=== PATIENT | female | born 1960 | race African-American/Black ===

== ENCOUNTER → 2016-03-08 | Outpatient (CLI) | payer BC ==
[2016-03-08 14:09] LABS: HEMATOCRIT 37.4 % (36.0-47.0); HEMOGLOBIN 11.9 g/dL (12.0-15.5); HGB HCT DIFFERENCE -1.7; MEAN CORPUSCULAR HEMOGLOBIN 27.6 pg (27.0-33.4); MEAN CORPUSCULAR HGB CONC 31.9 g/dL (32.0-36.0); MEAN CORPUSCULAR VOLUME 86 fl (80-97); RED BLOOD COUNT 4.33 10^6/uL (3.72-5.28); RED CELL DISTRIBUTION WIDTH 14.6 % (11.5-14.0); WHITE BLOOD COUNT 5.5 10^3/uL (4.0-10.5)
[2016-03-08 14:25] LABS: ALANINE AMINOTRANSFERASE 25 U/L (9-52); ALBUMIN 4.4 g/dL (3.5-5.0); ALKALINE PHOSPHATASE 79 U/L (38-126); ANION GAP 12 (5-19); BILIRUBIN,TOTAL 0.6 mg/dL (0.2-1.3); BLOOD UREA NITROGEN 14 mg/dL (7-20); CALCIUM 9.9 mg/dL (8.4-10.2); CARBON DIOXIDE 33 mmol/L (22-30); CHLORIDE 99 mmol/L (98-107); CREATININE RESULT 0.72 mg/dL (0.52-1.25); GLUCOSE 98 mg/dL (75-110); POTASSIUM 4.1 mmol/L (3.6-5.0); SODIUM 143.9 mmol/L (137-145); TOTAL PROTEIN 7.5 g/dL (6.3-8.2)
[2016-03-08 14:26] LABS: ASPARTATE AMINO TRANSFERASE 11 U/L (14-36)
[2016-03-10 15:15] LABS: Direct HDL 50 mg/dL (>40); TRIGLYCERIDES 140 mg/dL (<150)
[2016-03-10 15:33] LABS: DIRECT LDL 119 mg/dL (<100)
== END ==
LOC: OD 13:28
PROVIDERS: ATTEND Obstetrics & Gynecology
DX: J45.909 Unspecified asthma, uncomplicated (principal); I10 Essential (primary) hypertension; Z51.81 Encounter for therapeutic drug level monitoring
CPT/HCPCS: 36415; 80053; 80061; 83036; 85027

== ENCOUNTER 2016-05-30 10:10 | Emergency (ER) | payer BC ==
[2016-05-30] MEDS ORDERED: LIDOCAINE 5% (700 MG) TRANSDERMAL ADH..PATCH TP ONE (13:04)
--- NOTE | 2016-05-30 13:04 | ER Document Report ---
HPI - HPI Patient complains to provider of: right hip and back pain Onset: This morning Onset/Duration: Sudden, Worse Quality of pain: Achy Pain Level: 5 Context: Patient states she has a history of chronic low back pain for which she sees her primary doctor and takes Percocet for this. Patient states that she was walking to her vehicle went to sit down, and fell landing on the inner door well of the vehicle. Patient states that since falling she has had right hip, thigh and lower back pain. Patient states she has chronic low back pain and this is in the typical location of her chronic back pain. Patient denies any urinary retention or incontinence. Patient additionally complains of a rash that she has had her right forearm for the past month. Patient states she helps a friend take care of chores at her house in the friend has pets in the home. Patient thinks her rash is due to some contact with animal dander. Associated Symptoms: Other - Low back, right hip and thigh pain Exacerbated by: Movement, Walking Relieved by: Denies Similar symptoms previously: Yes Recently seen / treated by doctor: No - ROS ROS below otherwise negative: Yes Systems Reviewed and Negative: Yes All other systems reviewed and negative - GASTROINTESTINAL Gastrointestinal: DENIES: Nausea - URINARY Urinary: DENIES: Dysuria Notes: No urinary retention or incontinence - REPRODUCTIVE Reproductive: DENIES: : - MUSCULOSKELETAL Musculoskeletal: REPORTS: Extremity pain, Back Pain. DENIES: Neck Pain, Swelling - DERM Skin Color: Normal Skin Problems: None Past Medical History - General Information source: Patient - Social History Smoking Status: Never Smoker Chew tobacco use (# tins/day): No Drug Abuse: None Occupation: none Family History: Reviewed & Not Pertinent Patient has suicidal ideation: No Patient has homicidal ideation: No - Past Medical History Cardiac Medical History: Reports: Hx Hypertension Pulmonary Medical History: Reports: Hx Asthma Renal/ Medical History: Denies: Hx Peritoneal Dialysis Musculoskeltal Medical History: Reports Hx Arthritis, Reports Other - Chronic back pain Surgical Hx: Negative - Immunizations Hx Diphtheria, Pertussis, Tetanus Vaccination: Yes Vertical Provider Document - CONSTITUTIONAL Agree With Documented VS: Yes Exam Limitations: No Limitations General Appearance: WD/WN, No Apparent Distress - INFECTION CONTROL TRAVEL OUTSIDE OF THE [place] IN LAST 30 DAYS: No - HEENT HEENT: Atraumatic, Normal ENT Exam, Normocephalic - NECK Neck: Normal Inspection, Supple - RESPIRATORY Respiratory: Breath Sounds Normal, No Respiratory Distress, Chest Non-Tender O2 Sat by Pulse Oximetry: 95 - CARDIOVASCULAR Cardiovascular: Regular Rate, Regular Rhythm, No Murmur - BACK Back: Abnormal Inspection - Patient with lower lumbar paraspinal tenderness, right SI joint tenderness. negative: CVA Tenderness-Right, CVA Tenderness-Left Notes: No midline step-off or deformity - MUSCULOSKELETAL/EXTREMETIES Musculoskeletal/Extremeties: MAEW, Tender - Patient with tenderness with palpation of right hip as well as proximal third of right femur. No ecchymosis , no deformity. Normal gait, patient ambulatory in room with cane without any guarding - NEURO Level of Consciousness: Awake, Alert, Appropriate Motor/Sensory: No Motor Deficit - DERM Integumentary: Warm, Dry, Rash - Erythematous macular papular rash with scaling to middle third of right forearm Course - Vital Signs Vital signs: Temp Pulse Resp BP Pulse Ox 98.1 F 89 18 147/90 H 95 05/30/16 10:16 05/30/16 10:16 05/30/16 10:16 05/30/16 10:16 05/30/16 10:16 - Diagnostic Test Radiology reviewed: Image reviewed, Reports reviewed Discharge - Discharge Clinical Impression: Arthritis, Skin rash, Hx of essential hypertension Sprain of right hip Qualifiers: Encounter type: initial encounter Qualified Code(s): S73.101A - Unspecified sprain of right hip, initial encounter Chronic low back pain Qualifiers: Back pain laterality: bilateral Sciatica presence: without sciatica Qualified Code(s): M54.5 - Low back pain Condition: Stable Disposition: HOME, SELF-CARE Instructions: Ice Packs ([facility]), Warm Packs ([facility]), Low Back Pain ([facility]), Muscle Strain ([facility]), Sprain ([facility]), Contact Dermatitis ([facility]), Topical Steroid Cream or Ointment ([facility]) Additional Instructions: Return immediately for any new or worsening symptoms Followup with your primary care provider, call tomorrow to make a followup appointment Follow up with an fire protection specialist for any continued hip pain or problems Get a refill of your pain medication from your primary doctor Take your blood pressure medication at home as prescribed You may use a topical icle-wqx-gygkeva lidocaine patch Prescriptions: Triamcinolone Acetonide [Aristocort 0.1% Cream] 1 applic TP TID #60 gm Referrals: WILBER RAMIREZ MD [Primary Care Provider] - 05/30/16 [facility] [Provider Group] - Follow up in 3-5 days
[2016-05-30 13:21] VITALS: BP 162/108
== END 2016-05-30 13:21 | disposition home or self-care (01) ==
LOC: ER 10:10
DX: S73.101A Unspecified sprain of right hip, initial encounter (principal); W18.39XA Other fall on same level, initial encounter; Y93.89 Activity, other specified; Y92.810 Car as the place of occurrence of the external cause; M19.90 Unspecified osteoarthritis, unspecified site; M25.551 Pain in right hip; M79.651 Pain in right thigh; R21 Rash and other nonspecific skin eruption; M54.5 Low back pain; G89.29 Other chronic pain; Z79.891 Long term (current) use of opiate analgesic; I10 Essential (primary) hypertension; J45.909 Unspecified asthma, uncomplicated
CPT/HCPCS: 72110; 99283

== ENCOUNTER → 2018-05-23 | Day surgery (SDC) | payer BC, MEDICARE ==
[2018-05-22 11:49] LABS: HEMATOCRIT 35.7 % (36.0-47.0); HEMOGLOBIN 11.9 g/dL (12.0-15.5); MEAN CORPUSCULAR HEMOGLOBIN 27.7 pg (27.0-33.4); MEAN CORPUSCULAR HGB CONC 33.2 g/dL (32.0-36.0); MEAN CORPUSCULAR VOLUME 84 fl (80-97); PLATELET COUNT 314 10^3/uL (150-450); RED BLOOD COUNT 4.28 10^6/uL (3.72-5.28); RED CELL DISTRIBUTION WIDTH 14.8 % (11.5-14.0); WHITE BLOOD COUNT 6.2 10^3/uL (4.0-10.5)
[2018-05-22 11:52] LABS: APPEARANCE,URINE SLIGHTLY-CLOUDY; BILIRUBIN,URINE NEGATIVE (NEGATIVE); COLOR,URINE YELLOW; GLUCOSE, URINE NEGATIVE (NEGATIVE); KETONES,URINE NEGATIVE (NEGATIVE); LEUKOCYTE ESTERASE,URINE TRACE (NEGATIVE); NITRITE,URINE NEGATIVE (NEGATIVE); PROTEIN,URINE NEGATIVE (NEGATIVE); URINE SPECIFIC GRAVITY 1.025; UROBILINOGEN,URINE NEGATIVE mg/dL (<2.0)
[2018-05-22 12:16] LABS: ALANINE AMINOTRANSFERASE 24 U/L (9-52); ALBUMIN 4.2 g/dL (3.5-5.0); ALKALINE PHOSPHATASE 84 U/L (38-126); ANION GAP 8 (5-19); ASPARTATE AMINO TRANSFERASE 16 U/L (14-36); BILIRUBIN,DIRECT 0.2 mg/dL (0.0-0.4); BILIRUBIN,TOTAL 0.3 mg/dL (0.2-1.3); BLOOD UREA NITROGEN 15 mg/dL (7-20); CARBON DIOXIDE 28 mmol/L (22-30); CHLORIDE 103 mmol/L (98-107); GLUCOSE 91 mg/dL (75-110); POTASSIUM 3.8 mmol/L (3.6-5.0); SODIUM 139.3 mmol/L (137-145)
[~2018-05-23] MED LIST: ALBUTEROL SULFATE 0.083% NEB 2.5 MG/3 ML AMPUL NEB ONE; ALBUTEROL SULFATE 0.083% NEB 2.5 MG/3 ML AMPUL NEB PRN; CEFAZOLIN 1 GM/D5W RTU 0 GM/0 ML RTUPB IV ONE; CEFAZOLIN 1 GM/D5W RTU 1 GM/50 ML RTUPB IV PRN; FAMOTIDINE INJ/PF 20 MG/2 ML SDV IV ONE; FAMOTIDINE INJ/PF 20 MG/2 ML SDV IV PRN; LACTATED RINGERS 1000 ML IV PRN; LIDOCAINE 0.5% INJ-PF (5 MG/ML) 50 ML SDV SUBCUT PRN; METOCLOPRAMIDE HCL INJ/PF 10 MG/2 ML SDV ONE
[2018-05-23 09:36] VITALS: BP 151/93
--- NOTE | 2018-05-23 10:24 | EKG REPORT ---
SEVERITY:- ABNORMAL ECG - SINUS RHYTHM : Confirmed by: Leticia Hitchcock 23-May-2018 10:22:43
--- NOTE | 2018-05-23 10:54 | EKG REPORT ---
SEVERITY:- BORDERLINE ECG - SINUS RHYTHM BORDERLINE T WAVE ABNORMALITIES : Confirmed by: Leticia Hitchcock 23-May-2018 10:53:51
== END ==
LOC: OROUT 08:24
PROVIDERS: ATTEND Obstetrics & Gynecology
DX: N93.9 Abnormal uterine and vaginal bleeding, unspecified (principal); Z79.01 Long term (current) use of anticoagulants; R94.31 Abnormal electrocardiogram [ECG] [EKG]
CPT/HCPCS: 93005 ×2; 86900; 86901; 36415 ×2; 86850; 84132; 85027; 81025; 80053; 81001; 93010 ×2; 94640; A9270; J0690; J2765; S0028

== ENCOUNTER 2018-12-05 10:03 | Inpatient (IN) | payer MEDICARE ==
--- NOTE | 2018-12-04 12:26 | RADIOLOGY REPORT (SQ) ---
EXAM DESCRIPTION: CHEST PA/LATERAL COMPLETED DATE/TIME: 12/04/2018 12:14 pm REASON FOR STUDY: PRE-OP COMPARISON: 11/13/2013 EXAM PARAMETERS: NUMBER OF VIEWS: two views TECHNIQUE: Digital Frontal and Lateral radiographic views of the chest acquired. RADIATION DOSE: NA LIMITATIONS: none FINDINGS: LUNGS AND PLEURA: No opacities, masses or pneumothorax. No pleural effusion. MEDIASTINUM AND HILAR STRUCTURES: No masses or contour abnormalities. HEART AND VASCULAR STRUCTURES: Heart normal size. No evidence for failure. BONES: No acute findings. HARDWARE: None in the chest. OTHER: No other significant finding. IMPRESSION: NO SIGNIFICANT RADIOGRAPHIC FINDING IN THE CHEST. TECHNICAL DOCUMENTATION: JOB ID: [id number] [employer]- All Rights Reserved Reading location - IP/workstation name: [email or web address]
[2018-12-04 12:29] LABS: APPEARANCE,URINE SLIGHTLY-CLOUDY; BILIRUBIN,URINE NEGATIVE (NEGATIVE); COLOR,URINE YELLOW; GLUCOSE, URINE NEGATIVE (NEGATIVE); KETONES,URINE NEGATIVE (NEGATIVE); LEUKOCYTE ESTERASE,URINE MODERATE (NEGATIVE); NITRITE,URINE NEGATIVE (NEGATIVE); PROTEIN,URINE NEGATIVE (NEGATIVE); URINE SPECIFIC GRAVITY 1.021; UROBILINOGEN,URINE NEGATIVE mg/dL (<2.0)
[2018-12-04 12:31] LABS: HEMATOCRIT 30.5 % (36.0-47.0); MEAN CORPUSCULAR HEMOGLOBIN 27.7 pg (27.0-33.4); MEAN CORPUSCULAR HGB CONC 32.8 g/dL (32.0-36.0); MEAN CORPUSCULAR VOLUME 84 fl (80-97); PLATELET COUNT 436 10^3/uL (150-450); RED BLOOD COUNT 3.61 10^6/uL (3.72-5.28); RED CELL DISTRIBUTION WIDTH 15.3 % (11.5-14.0); WHITE BLOOD COUNT 7.5 10^3/uL (4.0-10.5)
[2018-12-04 13:05] LABS: ALBUMIN 4.2 g/dL (3.5-5.0); ALKALINE PHOSPHATASE 71 U/L (38-126); ANION GAP 14 (5-19); ASPARTATE AMINO TRANSFERASE 13 U/L (14-36); BILIRUBIN,DIRECT 0.2 mg/dL (0.0-0.4); BILIRUBIN,TOTAL 0.3 mg/dL (0.2-1.3); BLOOD UREA NITROGEN 16 mg/dL (7-20); CALCIUM 10.1 mg/dL (8.4-10.2); CARBON DIOXIDE 26 mmol/L (22-30); CHLORIDE 104 mmol/L (98-107); GLUCOSE 89 mg/dL (75-110); TOTAL PROTEIN 8.1 g/dL (6.3-8.2)
--- NOTE | 2018-12-04 18:59 | EKG REPORT ---
SEVERITY:- BORDERLINE ECG - SINUS RHYTHM BORDERLINE T WAVE ABNORMALITIES : Confirmed by: Tessa Diego MD 04-Dec-2018 18:58:31
[~2018-12-05 10:03] MED LIST changes: -ALBUTEROL SULFATE 0.083% NEB 2.5 MG/3 ML AMPUL NEB ONE; -ALBUTEROL SULFATE 0.083% NEB 2.5 MG/3 ML AMPUL NEB PRN; -CEFAZOLIN 1 GM/D5W RTU 0 GM/0 ML RTUPB IV ONE; -CEFAZOLIN 1 GM/D5W RTU 1 GM/50 ML RTUPB IV PRN; +CEFAZOLIN SODIUM 2 GM in DEXTROSE 5%-WATER 100 ML IV PRN; -FAMOTIDINE INJ/PF 20 MG/2 ML SDV IV ONE; -FAMOTIDINE INJ/PF 20 MG/2 ML SDV IV PRN; -METOCLOPRAMIDE HCL INJ/PF 10 MG/2 ML SDV ONE
[2018-12-05] MEDS ORDERED: DEXAMETHASONE SOD PHOSPHATE INJ 4 MG/1 ML VIAL ONE (10:34)
[2018-12-05] MEDS ORDERED: ROCURONIUM BROMIDE INJ 50 MG/5 ML VIAL IV ONE (10:34)
[2018-12-05] MEDS ORDERED: METOCLOPRAMIDE HCL INJ/PF 10 MG/2 ML SDV ONE (10:34)
[2018-12-05] MEDS ORDERED: PHENYLEPHRINE HCL INJ/PF 10 MG/1 ML SDV ONE (10:34)
[2018-12-05] MEDS ORDERED: SUCCINYLCHOLINE CHLORIDE INJ 200 MG/10 ML VIAL ONE (10:34)
[2018-12-05] MEDS ORDERED: GLYCOPYRROLATE INJ 0.4 MG/2 ML VIAL ONE (10:34)
[2018-12-05] MEDS ORDERED: ONDANSETRON HCL INJ/PF 4 MG/2 ML SDV ONE (10:34)
[2018-12-05] MEDS ORDERED: FENTANYL CITRATE INJ/PF 100 MCG/2 ML AMPUL IV PRN ×3 (11:46)
[2018-12-05] MEDS ORDERED: MEPERIDINE HCL/PF INJ 25 MG/1 ML DISP.SYRIN IV PRN (11:46)
[2018-12-05] MEDS ORDERED: DIPHENHYDRAMINE HCL 50 MG/ML VIAL IV PRN (11:46)
[2018-12-05] MEDS ORDERED: MIDAZOLAM 2 MG/2 ML INJ ONE (12:03)
[2018-12-05] MEDS ORDERED: FENTANYL CITRATE INJ/PF 100 MCG/2 ML AMPUL ONE (12:03)
[2018-12-05] MEDS ORDERED: HYDROMORPHONE HCL INJ/PF 2 MG/ML AMPULE ONE (12:03)
[2018-12-05] MEDS ORDERED: PROPOFOL INJ 200 MG/20 ML VIAL IV ONE (12:04)
[2018-12-05] MEDS ORDERED: FAMOTIDINE INJ/PF 20 MG/2 ML SDV IV ONE (13:39)
[2018-12-05] MEDS ORDERED: VASOPRESSIN INJ 20 UNIT/1 ML VIAL IV ONE (14:51)
[2018-12-05] MEDS ORDERED: PROMETHAZINE HCL INJ 25 MG/1 ML VIAL IV PRN (16:31)
[2018-12-05] MEDS ORDERED: HYDROMORPHONE HCL INJ/PF 2 MG/ML AMPULE IV PRN (16:31)
[2018-12-05] MEDS ORDERED: OXYCODONE-ACETAMINOPHEN 5-325 MG TABLET PO PRN (16:31)
[2018-12-05] MEDS ORDERED: RINGERS SOLUTION,LACTATED 1,000 ML IV PRN (16:31)
[2018-12-05] MEDS ORDERED: ACETAMINOPHEN 1,000 MG/100 ML RTUPB IV PRN (16:31)
[2018-12-05] MEDS ORDERED: SIMETHICONE 80 MG TAB.CHEW PO PRN (16:31)
[2018-12-05] MEDS ORDERED: ACETAMINOPHEN 325 MG TABLET PO PRN (16:31)
--- NOTE | 2018-12-05 16:47 | Operative Report ---
Operative Report DATE OF SURGERY: 12/05/18 PREOPERATIVE DIAGNOSIS: Postmenopausal abnormal uterine bleeding, leiomyoma of uterus multiple, pelvic pain, anemia of chronic blood loss POSTOPERATIVE DIAGNOSIS: Same OPERATION: Total abdominal hysterectomy with bilateral salpingo-oophorectomy SURGEON: MARJORIE MARTINEZ 1ST LIME BURNER: ARMAND PATEL ANESTHESIA: GA TISSUE REMOVED OR ALTERED: Cervix bilateral fallopian tube and ovaries COMPLICATIONS: None ESTIMATED BLOOD LOSS: 650 cc INTRAOPERATIVE FINDINGS: Large multiple lobe fibroid uterus just fibroid was approximately 10-1/2 cm was several within the fundus of the uterus was subserosal and submucosal ovaries were postmenopausal in appearance and tubes appeared normal, appendix was also noted during the case and was found to be normal in appearance PROCEDURE: Patient was taken to the operating room prepared and draped in normal sterile fashion in a supine position. A large Pfannenstiel skin incision was made with scalpel and carried through to the underlying layer fascia with the same scalpel. She was excised in the midline and extended laterally with Long's and Bovie as needed. She was then dissected from the rectus muscle sharply with the May[place]. This muscle was then divided in the midline. [place] cavity was entered bluntly and finally sharply with Metzenbaums. Peritoneum and rectus muscles were divided. This retractor was placed without difficulty. Was further packed away with moist laparotomy sponges. Findings were noted immediately with the uterus. Due to lack of visualization due to the size of the uterus several myomectomies were performed. The areas were injected with approximately a combined amount of 20 cc of vasopressin next with normal saline. The fibroids were then transected and removed using the Bovie and blunt dissection as necessary. The uterine body was more easily identifiable. The right adnexa presented itself more readily so the right adnexa is where the hysterectomy began. The right IP ligament was located and transected using the LigaSure. The once the ovary and fallopian tube were freed the right uterine arteries were skeletonized and transected and ligated with the LigaSure. Carried through to the the internal cervical os. She was then turned to the left adnexa the left adnexa was tucked far behind the uterus and was adhered a bit to the posterior abdominal wall. Therefore we began with transection of the round ligament and right utero-ovarian ligament . I then continued with the transection of the right uterine arteries again down to the level of the internal cervical loss. We were at a point where visualization was again becom ing more difficult, the upper two thirds of the uterus was amputated using Satinder's. the bladder was addressed in that the bladder flap was created using Metzenbaums and sharp and blunt dissection as needed. Once the bladder was further away we began we continued with transection of the uterine arteries bilaterally using the LigaSure down to until we could palpate the cervix through the mucosa. The vaginal angles were clamped with 2 Deepika clamps and the remainder of the cervix was amputated using Satinder's. Vaginal garner were then tagged with 2 Musa clamps. Vaginal garner were closed and reapproximated with several [id number]-[id number] 0 Vicryl pop offs. Until closure was felt to be assured. Stasis was maintained. We then went in search of the right over ovary and fallopian tube that had to be foregone earlier. Lupien tube was identified and grasped with a [place]. Following closely under the fallopian tube the this was transected and released from the IP ligament including the ovary and the LigaSure. Hemostasis was maintained. We then copiously irrigated and found the peritoneal cavity to be dry and there was no evidence of bleeding at this time. And removed the tractor. I then reapproximated the peritoneum and rectus muscle using 3 sutures of 0 Vicryl interrupted and mattress configuration. Fascia was closed with an 0 Vicryl runner. The cutaneous layer was closed with plain catgut. It was closed with 4-0 Vicryl. She tolerated the procedure well sponge lap and needle counts were correct x2. Interoperative decision was made to give the patient 2 units of packed red cells in the PACU her estimated blood loss was approximately 650 cc was starting in a slightly anemic state due to her continuous vaginal bleeding previously.
[2018-12-05] MEDS: OXYCODONE-ACETAMINOPHEN 5-325 MG TABLET PO PRN (18:51)
[2018-12-05] MEDS ORDERED: ALBUTEROL SULFATE HFA (90 MCG/PUFF) 200 PUFF/8.5 GM MDI IH PRN (19:02)
[2018-12-06] MEDS: OXYCODONE-ACETAMINOPHEN 5-325 MG TABLET PO PRN ×4 (01:45→22:48)
[2018-12-06 07:45] LABS: HEMATOCRIT 26.6 % (36.0-47.0); HEMOGLOBIN 8.7 g/dL (12.0-15.5); MEAN CORPUSCULAR HEMOGLOBIN 27.4 pg (27.0-33.4); MEAN CORPUSCULAR HGB CONC 32.7 g/dL (32.0-36.0); MEAN CORPUSCULAR VOLUME 84 fl (80-97); PLATELET COUNT 378 10^3/uL (150-450); RED BLOOD COUNT 3.17 10^6/uL (3.72-5.28)
--- NOTE | 2018-12-06 07:50 | PDOC PROGRESS REPORT ---
Subjective Progress Note for:: 12/06/18 Subjective:: doing well. is eager to have velazquez cath out and ambulate comfortably. No flatus as yet, but she is tolerating clear liquids with no problem. Reason For Visit: N93.9 ABNORMAL UTERINE AND VAGINAL BLEEDING, UNSPE Physical Exam - Physical Exam Vital Signs: Temp Pulse Resp BP Pulse Ox 98.5 F 85 18 132/78 H 100 12/06/18 07:31 12/06/18 07:31 12/06/18 07:31 12/06/18 07:31 12/06/18 07:31 Intake & Output 12/05/18 12/06/18 12/07/18 06:59 06:59 06:59 Intake Total 3900 Output Total 950 Balance 2950 Weight 134.26 kg General appearance: PRESENT: no acute distress, cooperative, obese, well- nourished Head exam: PRESENT: atraumatic, normocephalic GI/Abdominal exam: PRESENT: soft, tenderness - appropriate for post operative period. Incision bandage with very minimal drainage. No erythema or edema noted. Result Laboratory Results: 12/05/18 11:00 12/04/18 12/05/18 11:43 11:00 Potassium 3.7 Blood Type B POSITIVE Antibody Screen NEGATIVE Impressions: Chest X-Ray 12/04/18 12:01 IMPRESSION: NO SIGNIFICANT RADIOGRAPHIC FINDING IN THE CHEST. Assessment & Plan - Diagnosis (1) Abnormal uterine bleeding unrelated to menstrual cycle Is this a current diagnosis for this admission?: Yes (2) Anemia Qualifiers: Iron deficiency anemia type: chronic blood loss Is this a current diagnosis for this admission?: Yes (3) Fibroids Is this a current diagnosis for this admission?: Yes - Time Time Spent with patient: 15-24 minutes Medications reviewed and adjusted accordingly: Yes Anticipated discharge: Home Within: within 24 hours - Plan Summary Plan Summary: patient to have velazquez catheter removed today and begin ambulation. Continue IS for respiratory complication prevention. She needs to advance diet and begin passage of flatus. plan for discharge in AM on POD #2.
[2018-12-06] MEDS: PANTOPRAZOLE SODIUM 40 MG TABLET.DR PO SCH (08:17)
[2018-12-06] MEDS ORDERED: PRENATAL VITAMIN W DHA CAPSULE PO SCH (10:00)
[2018-12-06] MEDS ORDERED: (PENDING PHARMACY ID) (Lisinopril/Hydrochlorothiazide [Lisinopril-Hctz 10-12.5 Mg Tab] 1 E PO SCH (10:00)
[2018-12-06] MEDS: HYDROCHLOROTHIAZIDE 12.5 MG TABLET PO SCH (10:06)
[2018-12-06] MEDS: LISINOPRIL 10 MG TABLET PO SCH (10:08)
[2018-12-06] MEDS: DOCUSATE SODIUM 100 MG CAPSULE PO SCH ×2 (10:08→17:51)
[2018-12-07] MEDS: OXYCODONE-ACETAMINOPHEN 5-325 MG TABLET PO PRN ×2 (05:44→09:50)
[2018-12-07] MEDS: PANTOPRAZOLE SODIUM 40 MG TABLET.DR PO SCH (08:38)
[2018-12-07 08:55] VITALS: BP 155/92
[2018-12-07] MEDS: DOCUSATE SODIUM 100 MG CAPSULE PO SCH (09:49)
[2018-12-07] MEDS: LISINOPRIL 10 MG TABLET PO SCH (09:49)
[2018-12-07] MEDS: HYDROCHLOROTHIAZIDE 12.5 MG TABLET PO SCH (09:49)
--- NOTE | 2018-12-07 10:36 | PDOC DISCHARGE SUMMARY ---
Impression - Admit/DC Date/PCP Admission Date/Primary Care Provider: 12/05/18 10:03 WILBER RAMIREZ MD Discharge Date: 12/07/18 - Assessment Summary: Pt underwent uncomplicated Hysterectomy by Dr. Nichols due to SFU and Anemia and pelvic pain. She had diet advanced and care advanced on POD #1 and today POD#2 is tolerating po intake and ambulation. She is passing gas and +BM. She meets criteria for discharge. - Additional Information Resuscitation Status: Full Code Discharge Diet: As Tolerated Discharge Activity: Activity As Tolerated Referrals: WILBER RAMIREZ MD [Primary Care Provider] - Prescriptions: Acetaminophen [Tylenol 325 mg Tablet] 650 mg PO Q4HP PRN 14 Days #90 tablet PRN Reason: For Pain Scale 1-3 Docusate Sodium [Colace 100 mg Capsule] 100 mg PO BID #60 capsule Simethicone [Mylicon 80 mg Chewable Tablet] 80 mg PO QIDP PRN #60 tab.chew PRN Reason: For Gas (Flatulence) Omeprazole 40 mg PO QAM #30 Home Medications: Lisinopril/Hydrochlorothiazide [Lisinopril-Hctz 10-12.5 mg Tab] 1 each PO DAILY 05/22/18 Oxycodone HCl 10 mg PO Q6HP PRN 05/22/18 Albuterol Sulfate [Ventolin HFA MDI 18 GM] 2 puff IH Q4HP PRN 12/05/18 Acetaminophen [Tylenol 325 mg Tablet] 650 mg PO Q4HP PRN 14 Days #90 tablet 12/07/18 Docusate Sodium [Colace 100 mg Capsule] 100 mg PO BID #60 capsule 12/07/18 Omeprazole 40 mg PO QAM #30 12/07/18 Simethicone [Mylicon 80 mg Chewable Tablet] 80 mg PO QIDP PRN #60 tab.chew 12/07/18 History of Present Illiness History of Present Illness: KRISTIE GRAY is a 58 year old female underwent uncomplicated Hysterectomy by Dr. Nichols due to SFU and Anemia and pelvic pain. She had diet advanced and care advanced on POD #1 and today POD#2 is tolerating po intake and ambulation. She is passing gas and +BM. She meets criteria for discharge. Hospital Course Hospital Course: underwent uncomplicated Hysterectomy by Dr. Nichols due to SFU and Anemia and pelvic pain. She had diet advanced and care advanced on POD #1 and today POD#2 is tolerating po intake and ambulation. She is passing gas and +BM. She meets criteria for discharge. Physical Exam - Physical Exam Vital Signs: Temp Pulse Resp BP Pulse Ox 98.9 F 101 H 18 155/92 H 99 12/07/18 08:00 12/07/18 08:00 12/07/18 08:00 12/07/18 08:00 12/07/18 08:00 Intake & Output 12/06/18 12/07/18 12/08/18 06:59 06:59 06:59 Intake Total 3900 480 Output Total 950 600 Balance 2950 -120 Weight 145.5 kg General appearance: PRESENT: no acute distress, well-developed, well-nourished Respiratory exam: PRESENT: clear to auscultation wu, symmetrical, unlabored Cardiovascular exam: PRESENT: RRR. ABSENT: diastolic murmur, rubs, systolic murmur Pulses: PRESENT: normal dorsalis pedis pul, +2 pedal pulses bilateral GI/Abdominal exam: PRESENT: normal bowel sounds, soft. ABSENT: distended, guarding, mass, organolmegaly, rebound, tenderness Rectal exam: PRESENT: deferred Extremities exam: PRESENT: full ROM. ABSENT: calf tenderness, clubbing, pedal edema Neurological exam: PRESENT: alert, awake, oriented to person, oriented to place, oriented to time, oriented to situation, CN II-XII grossly intact. ABSENT: motor sensory deficit Psychiatric exam: PRESENT: appropriate affect, normal mood. ABSENT: homicidal ideation, suicidal ideation Skin exam: PRESENT: dry, intact, warm. ABSENT: cyanosis, rash Results Laboratory Results: WBC 12.0 10^3/uL (4.0-10.5) H 12/06/18 07:16 RBC 3.17 10^6/uL (3.72-5.28) L 12/06/18 07:16 Hgb 8.7 g/dL (12.0-15.5) L 12/06/18 07:16 Hct 26.6 % (36.0-47.0) L 12/06/18 07:16 MCV 84 fl (80-97) 12/06/18 07:16 MCH 27.4 pg (27.0-33.4) 12/06/18 07:16 MCHC 32.7 g/dL (32.0-36.0) 12/06/18 07:16 RDW 15.0 % (11.5-14.0) H 12/06/18 07:16 Plt Count 378 10^3/uL (150-450) 12/06/18 07:16 Sodium 144.0 mmol/L (137-145) 12/04/18 11:43 Potassium 3.7 mmol/L (3.6-5.0) 12/05/18 11:00 Chloride 104 mmol/L (98-107) 12/04/18 11:43 Carbon Dioxide 26 mmol/L (22-30) 12/04/18 11:43 Anion Gap 14 (5-19) 12/04/18 11:43 BUN 16 mg/dL (7-20) 12/04/18 11:43 Creatinine 0.70 mg/dL (0.52-1.25) 12/04/18 11:43 Est GFR ( Amer) > 60 (>60) 12/04/18 11:43 Est GFR (MDRD) Non-Af > 60 (>60) 12/04/18 11:43 Glucose 89 mg/dL (75-110) 12/04/18 11:43 Calcium 10.1 mg/dL (8.4-10.2) 12/04/18 11:43 Total Bilirubin 0.3 mg/dL (0.2-1.3) 12/04/18 11:43 Direct Bilirubin 0.2 mg/dL (0.0-0.4) 12/04/18 11:43 Neonat Total Bilirubin Not Reportable 12/04/18 11:43 Neonat Direct Bilirubin Not Reportable 12/04/18 11:43 Neonat Indirect Bili Not Reportable 12/04/18 11:43 AST 13 U/L (14-36) L 12/04/18 11:43 ALT 14 U/L (<35) 12/04/18 11:43 Alkaline Phosphatase 71 U/L (38-126) 12/04/18 11:43 Total Protein 8.1 g/dL (6.3-8.2) 12/04/18 11:43 Albumin 4.2 g/dL (3.5-5.0) 12/04/18 11:43 Serum HCG, Qual NEGATIVE (NEGATIVE) 12/04/18 11:43 Urine Color YELLOW 12/04/18 11:25 Urine Appearance SLIGHTLY-CLOUDY 12/04/18 11:25 Urine pH 5.0 (5.0-9.0) 12/04/18 11:25 Ur Specific [place] 1.021 12/04/18 11:25 Urine Protein NEGATIVE mg/dL (NEGATIVE) 12/04/18 11:25 Urine Glucose (UA) NEGATIVE mg/dL (NEGATIVE) 12/04/18 11:25 Urine Ketones NEGATIVE mg/dL (NEGATIVE) 12/04/18 11:25 Urine Blood LARGE (NEGATIVE) H 12/04/18 11:25 Urine Nitrite NEGATIVE (NEGATIVE) 12/04/18 11:25 Urine Bilirubin NEGATIVE (NEGATIVE) 12/04/18 11:25 Urine Urobilinogen NEGATIVE mg/dL (<2.0) 12/04/18 11:25 Ur Leukocyte Esterase MODERATE (NEGATIVE) H 12/04/18 11:25 Urine WBC (Auto) 13 /HPF 12/04/18 11:25 Urine RBC (Auto) 148 /HPF 12/04/18 11:25 Urine Bacteria (Auto) TRACE /HPF 12/04/18 11:25 Squamous Epi Cells Auto 7 /HPF 12/04/18 11:25 Urine Mucus (Auto) OCC /LPF 12/04/18 11:25 Urine Ascorbic Acid 20 (NEGATIVE) H 12/04/18 11:25 Blood Type B POSITIVE 12/04/18 11:43 Blood Type Confirm B POSITIVE 12/04/18 11:43 Antibody Screen NEGATIVE 12/04/18 11:43 Crossmatch See Detail 12/04/18 11:43 Impressions: Chest X-Ray 12/04/18 12:01 IMPRESSION: NO SIGNIFICANT RADIOGRAPHIC FINDING IN THE CHEST. Plan Health Concerns: Discharge home with f/u PCM, Pain MgmtDr. Brooks as scheduled Stroke Is this a Stroke Patient?: No Acute Heart Failure - Is this a Heart Failure Patient?: No
--- NOTE | 2019-01-22 12:08 | Operative Report ---
Operative Report DATE OF SURGERY: 12/05/18 OPERATION: total abdominal hysterectomy with bilateral salpingoopherectomy SURGEON: MARJORIE MARTINEZ PROCEDURE: adedendum to original operative report. procedure including bilateral salpingoopherectomy. both right and left fallopian tubes and ovaries removed.
== END 2018-12-07 11:15 | disposition home or self-care (01) | DRG 743 ==
LOC: INOR 10:03 → 2N 18:26
PROVIDERS: ADMIT Obstetrics & Gynecology; ATTEND Obstetrics & Gynecology
PROC: 0UT70ZZ Resection of Bilateral Fallopian Tubes, Open Approach (ICD-10-PCS; 2018-12-05)
PROC: 0UT20ZZ Resection of Bilateral Ovaries, Open Approach (ICD-10-PCS; 2018-12-05)
PROC: 0UT90ZZ Resection of Uterus, Open Approach (ICD-10-PCS; principal; 2018-12-05 12:15)
DX: N92.4 Excessive bleeding in the premenopausal period (principal); D25.9 Leiomyoma of uterus, unspecified; N93.9 Abnormal uterine and vaginal bleeding, unspecified; D64.9 Anemia, unspecified
CPT/HCPCS: 36415; 71046; 80053; 81001; 840; 84132; 84703; 85027; 86850; 86900; 86901; 86920; 88307; 93005; 93010; 94799; J0131; J0330; J0690; J1100; J1170; J2250; J2370; J2405; J2704; J2765; J3010; J3490; J7060; J7120; S0028

== ENCOUNTER → 2019-05-12 | Outpatient (CLI) | payer MEDICAID, MEDICARE ==
--- NOTE | 2019-05-12 18:53 | RADIOLOGY REPORT (SQ) ---
EXAM DESCRIPTION: U/S THYROID/SFT TISS HD NECK IMAGES COMPLETED DATE/TIME: 05/12/2019 4:46 pm REASON FOR STUDY: E04.9 NONTOXIC GOITER, UNSPECIFIED E04.9 NONTOXIC GOITER, UNSPECIFIED COMPARISON: 12/13/2016 TECHNIQUE: Dynamic and static benson-scale images acquired of the thyroid gland. Selected additional c olor/power Doppler images recorded. All images stored to PACS. LIMITATIONS: None. FINDINGS: RIGHT LOBE: Normal size, 4.6 x 1.7 x 2.1 cm. Homogeneous echotexture. There is a 6 mm hy poechoic nodule. LEFT LOBE: Normal size, 4.6 x 1.8 x 1.9 cm. Heterogeneous echotexture. No definable mass could be s een. No cystic or solid masses. ISTHMUS: Normal size, 5 mm. Poorly seen. OTHER: No other significant finding. IMPRESSION: 6 mm hypoechoic nodule in the right lobe of the gland. TIRADS 4, moderately suspicious. COMMENT: RECOMMENDATIONS FOR THYROID NODULES 1 CM OR LARGER Solitary nodules: Microcalcifications - FNA if 1 cm or greater. Solid or coarse calcification - FNA if 1.5 cm or greater. Mixed Solid/Cystic or Cystic with Mural Nodule - FNA if 2 cm or greater. None of the above but substantial growth since previous - FNA. Cystic with none of the above features and no significant growth - no FNA. Multiple nodules: Use above criteria for selection of nodules to FNA/biopsy. Biopsy probably not necessary in enlarged gland with multiple nodules of similar appearance. Abnormal lymph nodes - FNA/biopsy. Reference: Management of Thyroid Nodules Detected at [place]: Society of Radiologists in Ultrasound Consensus Stateme nt. Radiology 2005; 237:794-800 TECHNICAL DOCUMENTATION: JOB ID: [id number] 2010 [employer]- All Rights Reserved Reading location - IP/workstation name: [email or web address]
== END ==
LOC: RAD 15:45
PROVIDERS: ATTEND Obstetrics & Gynecology
DX: E04.1 Nontoxic single thyroid nodule (principal)
CPT/HCPCS: 76536